=== PATIENT | female | born 1990 | race Caucasian/White ===

== ENCOUNTER 2020-05-25 09:28 | Outpatient (CLI) | payer OTHER ==
[~2020-05-25 09:28] MED LIST: Magnevist 469MG/ML 20 ML VIAL ONE
--- NOTE | 2020-05-25 11:31 | MRI ---
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 Additional thin slice coronal and sagittal sequences through sella turcica, including dynamic and sta ndard postcontrast sequences. FINDINGS: The ventricles are normal in size and configuration. There is no midline shift or any other evidence of mass effect. There is no extra-axial fluid collection. There is no intra-axial signal abnormality, abnormal enhancement, mass, recent hemorrhage, or restricted diffusion. 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 There is no differential enhancement of pituitary tissue to indicate microadenoma. There is certainly no macroadenoma, and no suprasellar mass. No impingement upon the normal optic chiasm. There is enhancing moderate mucosal thickening circumferentially throughout the left maxillary sinus. Additionally, there is fluid filling most of the left maxillary sinus chamber, such that only a small portion of the sinus is aerated. IMPRESSION: 1. Normal brain 2. Somewhat small volume pituitary gland. 3. No evidence of pituitary microadenoma. 4. Left maxillary sinus mucosal disease, with infundibular pattern of obstruction.
== END 2020-05-25 09:29 | disposition home or self-care (01) ==
LOC: TBSIIMAG 09:28
PROVIDERS: ATTEND Family Medicine
DX: D35.2 Benign neoplasm of pituitary gland (principal); J34.89 Other specified disorders of nose and nasal sinuses
CPT/HCPCS: 70553; A9579

== ENCOUNTER 2020-06-16 19:30 | Outpatient (CLI) | payer OTHER | END 2020-06-16 19:31 | disposition home or self-care (01) | LOC: SLEEPLAB 19:30 | PROVIDERS: ATTEND Family Medicine | DX: G47.33 Obstructive sleep apnea (adult) (pediatric) (principal); R53.83 Other fatigue; R51.9 Headache, unspecified; R06.83 Snoring; F41.8 Other specified anxiety disorders; G47.10 Hypersomnia, unspecified; R29.898 Other symptoms and signs involving the musculoskeletal system; E66.9 Obesity, unspecified; Z68.37 Body mass index [BMI] 37.0-37.9, adult | CPT/HCPCS: 95810 ==

== ENCOUNTER 2020-09-13 18:43 | Emergency (ER) | payer OTHER ==
--- NOTE | 2020-09-13 19:23 | RAD ---
XR Chest Pa Lat STANDARD HISTORY: Shortness of breath COMPARISON: None FINDINGS: The heart size is normal. The lungs are well expanded without focal areas of consolidation, pneumothorax or pleural effusions. IMPRESSION: No radiographic evidence of acute cardiopulmonary process.
[2020-09-13] MEDS ORDERED: Albuterol Sulfate 2.5 mg/3 ml Neb ONE (21:06)
[2020-09-13] MEDS ORDERED: Albuterol 200 PUFF (6.7GM INHALER) ONE (21:06)
--- NOTE | 2020-10-03 21:02 | EKG ---
Test Reason : Blood Pressure : / mmHG Vent. Rate : 083 BPM Atrial Rate : 083 BPM P-R Int : 142 ms QRS Dur : 084 ms QT Int : 394 ms P-R-T Axes : 049 041 017 degrees QTc Int : 462 ms Normal sinus rhythm Normal ECG Confirmed by GINA NARAYANAN ([id number]), commercial production editor SHARATH STEINBERG ([id number] on 10/03/2020 9:01:29 PM Referred By: Confirmed By:GINA NARAYANAN
== END 2020-09-13 23:47 | disposition home or self-care (01) ==
LOC: ERS 18:43
DX: J45.901 Unspecified asthma with (acute) exacerbation (principal); Z87.891 Personal history of nicotine dependence
CPT/HCPCS: 71046; 93005; J7611